=== PATIENT | female | born 1955 | race Caucasian/White ===

== ENCOUNTER 2023-02-20 09:02 | Outpatient (CLI) | payer MEDICARE ==
[2023-02-20] MEDS ORDERED: Iopamidol 370 76% 100 ML VIAL ONE (09:17)
== END 2023-02-20 09:03 | disposition home or self-care (01) ==
LOC: CSHCT 09:02
PROVIDERS: ATTEND Family Medicine
DX: G83.21 Monoplegia of upper limb affecting right dominant side (principal); I70.90 Unspecified atherosclerosis; I65.21 Occlusion and stenosis of right carotid artery; E04.2 Nontoxic multinodular goiter
CPT/HCPCS: 70498